=== PATIENT | female | born 2000 | race Two or more races ===

== ENCOUNTER 2019-10-16 21:10 | Observation (INO) | payer OTHER ==
[~2019-10-16] VITALS: Ht 165.1 cm; Wt 131.1 kg
[~2019-10-16 21:10] MED LIST: FERR-252 PO; PREN-385 PO
[2019-10-16] MEDS ORDERED: ACETAMINOPHEN 325 MG TAB PO PRN (22:00)
[2019-10-16] MEDS ORDERED: ACETAMINOPHEN 325 MG TAB ONE (22:02)
[2019-10-16 22:24] VITALS: BP 109/62
== END 2019-10-17 00:10 | disposition home or self-care (01) ==
LOC: MLD 21:10
PROVIDERS: ADMIT Obstetrics & Gynecology; ATTEND Obstetrics & Gynecology
DX: O36.8130 Decreased fetal movements, third trimester, not applicable or unspecified (principal); Z3A.31 31 weeks gestation of pregnancy
CPT/HCPCS: 76819; G0378; Q0092; 81000

== ENCOUNTER 2019-11-21 17:40 | Observation (INO) | payer OTHER ==
[2019-11-21 19:37] VITALS: BP 136/78
[2019-11-21 21:25] LABS: APPEARANCE,URINE CLEAR (CLEAR); BILIRUBIN,URINE NEGATIVE (NEGATIVE); BLOOD, URINE NEGATIVE (NEGATIVE); LEUKOCYTE ESTERASE ,URINE NEGATIVE (NEGATIVE); NITRITE, URINE NEGATIVE (NEGATIVE); PH,URINE 5.5 (5.0-9.0); UGLUCOSE NEGATIVE (NEGATIVE)
[2019-11-21 21:27] LABS: COLOR,URINE YELLOW (YELLOW)
[2019-11-21 21:44] LABS: CARBON DIOXIDE 22.8 mmol/L (21-32); CREATININE 0.6 mg/dL (0.6-1.3); POTASSIUM 3.8 mmol/L (3.5-5.1)
[2019-11-21 21:48] LABS: PROTHROMBIN TIME 8.8 secs (10.8-13.4)
[2019-11-21 21:49] LABS: ALBUMIN 2.6 g/dL (3.4-5.0); MAGNESIUM 1.7 mg/dL (1.8-2.4); TOTAL BILIRUBIN 0.4 mg/dL (0.0-1.0)
[2019-11-21 21:58] LABS: BASOPHILS # (AUTO) 0.1 K/uL (0.00-0.22); BASOPHILS % (AUTO) 0.5 % (0.0-2.0); EOSINOPHILS # (AUTO) 0.1 K/uL (0-0.4); EOSINOPHILS % (AUTO) 0.5 % (0.0-4.0); HEMATOCRIT 37.2 % (36-48); HEMOGLOBIN 12.2 g/dL (12.0-16.0); LYMPHOCYTES # (AUTO) 1.9 K/uL (2.5-16.5); LYMPHOCYTES % (AUTO) 16.6 % (20.5-51.1); MEAN CORPUSCULAR HEMOGLOBIN 28 pg (27-31); MEAN CORPUSCULAR HGB CONC 33 g/dL (33-37); MEAN CORPUSCULAR VOLUME 83.8 fL (80-94); MONOCYTES # (AUTO) 0.6 K/uL (0.8-1.0); MONOCYTES % (AUTO) 5.5 % (1.7-9.3); NEUTROPHILS # (AUTO) 8.8 K/uL (1.8-7.7); NEUTROPHILS % (AUTO) 76.9 % (42.2-75.2); PLATELET COUNT (AUTO) 264 K/uL (140-450); RED BLOOD CELL COUNT(AUTO) 4.44 MIL/uL (4.20-5.40); RED CELL DISTRIBUTION WIDTH 14.7 % (11.6-13.7); WHITE BLOOD COUNT (AUTO) 11.4 K/uL (4.8-10.8)
--- NOTE | 2019-11-22 08:33 | NUR ---
PATIENT HAS BEEN SCREENED AND CATEGORIZED LOW NUTRITION RISK. PATIENT WILL BE SEEN WITHIN 7 DAYS OF ADMISSION. 11/28/[address]
[2019-11-22 09:25] LABS: BASOPHILS % (AUTO) 0.4 % (0.0-2.0); EOSINOPHILS # (AUTO) 0.1 K/uL (0-0.4); EOSINOPHILS % (AUTO) 0.8 % (0.0-4.0); HEMATOCRIT 33.3 % (36-48); HEMOGLOBIN 11.2 g/dL (12.0-16.0); LYMPHOCYTES # (AUTO) 1.7 K/uL (2.5-16.5); LYMPHOCYTES % (AUTO) 16.8 % (20.5-51.1); MEAN CORPUSCULAR HEMOGLOBIN 28 pg (27-31); MEAN CORPUSCULAR HGB CONC 34 g/dL (33-37); MEAN CORPUSCULAR VOLUME 83.6 fL (80-94); MONOCYTES # (AUTO) 0.6 K/uL (0.8-1.0); MONOCYTES % (AUTO) 6.5 % (1.7-9.3); NEUTROPHILS # (AUTO) 7.6 K/uL (1.8-7.7); NEUTROPHILS % (AUTO) 75.5 % (42.2-75.2); PLATELET COUNT (AUTO) 219 K/uL (140-450); RED BLOOD CELL COUNT(AUTO) 3.98 MIL/uL (4.20-5.40); RED CELL DISTRIBUTION WIDTH 14.9 % (11.6-13.7)
== END 2019-11-22 10:45 | disposition home or self-care (01) ==
LOC: MLD 17:40 → MFCC 23:47
PROVIDERS: ADMIT Obstetrics & Gynecology; ATTEND Obstetrics & Gynecology
DX: O26.893 Other specified pregnancy related conditions, third trimester (principal); O99.413 Diseases of the circulatory system complicating pregnancy, third trimester; R10.2 Pelvic and perineal pain; R00.0 Tachycardia, unspecified; Z3A.37 37 weeks gestation of pregnancy; Z79.899 Other long term (current) drug therapy
CPT/HCPCS: 36415; 76805; 80053; 81003; 83735; 85025; 85384; 85610; 85730; 86592; 86703; 86886; 86900; 86901; 87086; G0378; Q0092

== ENCOUNTER 2019-12-01 13:01 | Observation (INO) | payer MEDICAID ==
[~2019-12-01] VITALS: Ht 165.1 cm; Wt 131.1 kg
[2019-12-01 13:39] VITALS: BP 129/70
== END 2019-12-01 14:13 | disposition home or self-care (01) ==
LOC: MLD 13:01
PROVIDERS: ADMIT Obstetrics & Gynecology; ATTEND Obstetrics & Gynecology
DX: O26.893 Other specified pregnancy related conditions, third trimester (principal); R10.9 Unspecified abdominal pain; Z3A.39 39 weeks gestation of pregnancy
CPT/HCPCS: 81000; G0378

== ENCOUNTER 2019-12-02 11:59 | Inpatient (IN) | payer MEDICAID ==
[~2019-12-02] VITALS: Ht 165.1 cm; Wt 131.1 kg
[2019-12-02] MEDS ORDERED: PROMETHAZINE 25 MG/ML VIAL IVP PRN (12:35)
[2019-12-02] MEDS ORDERED: NALBUPHINE 10 MG/ML AMP IVP PRN (12:35)
[2019-12-02] MEDS ORDERED: CARBOPROST 250 MCG/ML AMP IM PRN (12:35)
[2019-12-02] MEDS ORDERED: METHYLERGONOVINE 0.2 MG/ML AMP IM PRN (12:35)
[2019-12-02 13:45] LABS: BASOPHILS % (AUTO) 0.4 % (0.0-2.0); EOSINOPHILS % (AUTO) 0.4 % (0.0-4.0); HEMATOCRIT 35.3 % (36-48); HEMOGLOBIN 11.9 g/dL (12.0-16.0); LYMPHOCYTES # (AUTO) 1.4 K/uL (2.5-16.5); LYMPHOCYTES % (AUTO) 13.4 % (20.5-51.1); MEAN CORPUSCULAR HEMOGLOBIN 28 pg (27-31); MEAN CORPUSCULAR HGB CONC 34 g/dL (33-37); MEAN CORPUSCULAR VOLUME 83.7 fL (80-94); MONOCYTES # (AUTO) 0.8 K/uL (0.8-1.0); MONOCYTES % (AUTO) 7.3 % (1.7-9.3); NEUTROPHILS # (AUTO) 8.2 K/uL (1.8-7.7); NEUTROPHILS % (AUTO) 78.5 % (42.2-75.2); PLATELET COUNT (AUTO) 257 K/uL (140-450); RED BLOOD CELL COUNT(AUTO) 4.22 MIL/uL (4.20-5.40); RED CELL DISTRIBUTION WIDTH 15.4 % (11.6-13.7); WHITE BLOOD COUNT (AUTO) 10.4 K/uL (4.8-10.8)
[2019-12-02 13:47] LABS: APPEARANCE,URINE CLEAR (CLEAR); BILIRUBIN,URINE NEGATIVE (NEGATIVE); BLOOD, URINE NEGATIVE (NEGATIVE); COLOR,URINE YELLOW (YELLOW); LEUKOCYTE ESTERASE ,URINE NEGATIVE (NEGATIVE); NITRITE, URINE NEGATIVE (NEGATIVE); UGLUCOSE NEGATIVE (NEGATIVE)
[2019-12-02 14:06] LABS: ANION GAP 13.4 (8-16); CARBON DIOXIDE 23.4 mmol/L (21-32); CREATININE 0.5 mg/dL (0.6-1.3); POTASSIUM 3.8 mmol/L (3.5-5.1)
[2019-12-02 14:12] LABS: ALBUMIN 2.4 g/dL (3.4-5.0); TOTAL BILIRUBIN 0.3 mg/dL (0.0-1.0)
[2019-12-02] MEDS ORDERED: MISOPROSTOL 25 MCG TAB ONE (14:45)
[2019-12-02 15:12] VITALS: BP 120/73
[2019-12-02] MEDS ORDERED: MISOPROSTOL 25 MCG TAB VG SCH (18:00)
[2019-12-02] MEDS ORDERED: OXYTOCIN 20 UNITS in LACTATED RINGERS 1,000 ML IV SCH (18:10)
[2019-12-02] MEDS: LACTATED RINGERS 1,000 ML IV SCH ×2 (20:00→21:08)
[2019-12-02] MEDS ORDERED: ROPIVACAINE 0.2%/NS PREMIX 100 ML EPI ONE (20:15)
[2019-12-02] MEDS ORDERED: ROPIVACAINE 0.2%/NS PREMIX 100 ML EPI SCH (20:35)
[2019-12-03] MEDS ORDERED: OXYTOCIN 20 UNITS/LR PREMIX 1,000 ML IV ONE ×2 (00:27→23:58)
[2019-12-03] MEDS ORDERED: ROPIVACAINE 0.2%/NS PREMIX 100 ML EPI ONE ×2 (06:40→17:10)
--- NOTE | 2019-12-03 08:54 | NUR ---
PATIENT IS SCREENED AND CATEGORIZED LOW NUTRITION RISK. PATIENT WILL BE SEEN WITHIN 5-7 DAY OF ADMISSION. 12/06/2019-12/08/[address]
[2019-12-03] MEDS: LACTATED RINGERS 1,000 ML IV SCH ×2 (13:07→18:39)
[2019-12-03] MEDS ORDERED: BUPIVACAINE 0.125%/NS PREMIX 250 ML ONE (17:19)
[2019-12-03] MEDS ORDERED: BUPIVACAINE 0.125%/NS PREMIX 250 ML EPI SCH (17:35)
[2019-12-03] MEDS ORDERED: OXYTOCIN 20 UNITS in LACTATED RINGERS 1,000 ML IV SCH (18:10)
[2019-12-03] MEDS ORDERED: EPIDURAL KEYS MC ONE (21:51)
[2019-12-04] MEDS ORDERED: MEASLES, MUMPS, AND RUBELLA 1 VIAL SQVAC PRN (00:25)
[2019-12-04] MEDS ORDERED: BENZOCAINE/MENTHOL 20%-0.5% 60 GM CAN TP PRN (00:25)
[2019-12-04] MEDS ORDERED: OXYTOCIN 10 UNITS/ML VIAL IM PRN (00:25)
[2019-12-04] MEDS ORDERED: METHYLERGONOVINE 0.2 MG/ML AMP IM PRN (00:25)
[2019-12-04] MEDS ORDERED: METHYLERGONOVINE 0.2 MG TAB PO PRN (00:25)
[2019-12-04] MEDS ORDERED: IBUPROFEN 800 MG TAB PO PRN (00:25)
[2019-12-04] MEDS ORDERED: OXYTOCIN 20 UNITS/LR PREMIX 1,000 ML IV ONE (01:54)
[2019-12-04 10:27] LABS: HEMATOCRIT 29.9 % (36-48); HEMOGLOBIN 10.2 g/dL (12.0-16.0)
[2019-12-05] MEDS ORDERED: INFLUENZA VACCINE QUAD 0.5 ML SYR IMVAC PRN ×2 (07:00→10:00)
== END 2019-12-06 12:20 | disposition home or self-care (01) | DRG 560 ==
LOC: MLD 11:59 → MFCC 12-04 04:30
PROVIDERS: ADMIT Obstetrics & Gynecology; ATTEND Obstetrics & Gynecology
PROC: 10E0XZZ Delivery of Products of Conception, External Approach (ICD-10-PCS; principal; 2019-12-04)
PROC: 10907ZC Drainage of Amniotic Fluid, Therapeutic from Products of Conception, Via Natural or Artificial Opening (ICD-10-PCS; 2019-12-04)
PROC: 3E033VJ Introduction of Other Hormone into Peripheral Vein, Percutaneous Approach (ICD-10-PCS; 2019-12-04)
PROC: 3E0P7VZ Introduction of Hormone into Female Reproductive, Via Natural or Artificial Opening (ICD-10-PCS; 2019-12-04)
PROC: 0HQ9XZZ Repair Perineum Skin, External Approach (ICD-10-PCS; 2019-12-04)
PROC: 3E0R3BZ Introduction of Anesthetic Agent into Spinal Canal, Percutaneous Approach (ICD-10-PCS; 2019-12-04)
PROC: 00HU33Z Insertion of Infusion Device into Spinal Canal, Percutaneous Approach (ICD-10-PCS; 2019-12-04)
PROC: 3E0234Z Introduction of Serum, Toxoid and Vaccine into Muscle, Percutaneous Approach (ICD-10-PCS; 2019-12-04)
PROC: 3E0134Z Introduction of Serum, Toxoid and Vaccine into Subcutaneous Tissue, Percutaneous Approach (ICD-10-PCS; 2019-12-04)
PROC: 3E02340 Introduction of Influenza Vaccine into Muscle, Percutaneous Approach (ICD-10-PCS; 2019-12-05)
DX: O76 Abnormality in fetal heart rate and rhythm complicating labor and delivery (principal); D62 Acute posthemorrhagic anemia; O70.0 First degree perineal laceration during delivery; Z23 Encounter for immunization; Z3A.39 39 weeks gestation of pregnancy; Z37.0 Single live birth
CPT/HCPCS: 36415; 51702; 59200; 59409; 76815; 80053; 81003; 85018; 85025; 86592; 86886; 86900; 86901; 90707; 90715; C1758; J2590; J2795; J3490; J7120; Q0092

== ENCOUNTER 2022-03-25 11:09 | Emergency (ER) | payer MEDICAID, OTHER ==
[~2022-03-25] VITALS: Ht 165.1 cm; Wt 135.7 kg
[2022-03-25 11:13] VITALS: BP 142/79
--- NOTE | 2022-03-25 11:23 | NUR ---
EKG AT TRIAGE ROOM.
--- NOTE | 2022-03-25 12:09 | NUR ---
C/O CONSTANT 8/10 LEFT CHEST PAIN X ATARTED AT 8:30 AM TODAY. PT STATED WOKE UP EARLY THIS MORNING WITH A LITTLE BIT OF CHEST PAIN. PAIN WAS WORSE WHEN WOKEUP LATER IN THE MORNING AT A 8/10 MORE ON THE LEFT SIDE OF THE CHEST. NO COMPLIANT OF PAIN ANYWHERE ELSE. PAIN GETS SHARPER WHEN BREATHING. NO TRAUMA TO THE AREA. NO PROBLEMS BREATHING. PT RESTING IN BED. NO PMH NKA
[2022-03-25] MEDS ORDERED: NAPR-54 PO (14:08)
[2022-03-25 14:16] VITALS: BP 126/75
== END 2022-03-25 14:17 | disposition home or self-care (01) ==
LOC: MED 11:09
DX: R07.89 Other chest pain (principal); Z79.899 Other long term (current) drug therapy; Z79.1 Long term (current) use of non-steroidal anti-inflammatories (NSAID)
CPT/HCPCS: 81002; 81025; 93005; 99283

== ENCOUNTER 2023-03-20 14:11 | Emergency (ER) | payer OTHER ==
[~2023-03-20] VITALS: Ht 165.1 cm; Wt 130.6 kg
[~2023-03-20 14:11] MED LIST changes: +NAPR-54 PO
[2023-03-20 14:17] VITALS: BP 136/70
--- NOTE | 2023-03-20 14:22 | NUR ---
PT AMBULATORY TO [facility]
[2023-03-20] MEDS ORDERED: KETOROLAC 30 MG/ML VIAL IM ONE (15:40)
[2023-03-20 16:13] LABS: APPEARANCE,URINE HAZY (CLEAR); BILIRUBIN,URINE NEGATIVE (NEGATIVE); BLOOD, URINE NEGATIVE (NEGATIVE); COLOR,URINE YELLOW (YELLOW); LEUKOCYTE ESTERASE ,URINE 1+ (NEGATIVE); NITRITE, URINE NEGATIVE (NEGATIVE); UGLUCOSE NEGATIVE (NEGATIVE)
[2023-03-20 16:31] LABS: BASOPHILS # (AUTO) 0.1 K/uL (0.00-0.22); BASOPHILS % (AUTO) 0.6 % (0.0-2.0); EOSINOPHILS # (AUTO) 0.3 K/uL (0-0.4); EOSINOPHILS % (AUTO) 2.4 % (0.0-4.0); HEMATOCRIT 35.7 % (36-48); HEMOGLOBIN 11.5 g/dL (12.0-16.0); LYMPHOCYTES % (AUTO) 17.9 % (20.5-51.1); MEAN CORPUSCULAR HEMOGLOBIN 24 pg (27-31); MEAN CORPUSCULAR HGB CONC 32 g/dL (33-37); MONOCYTES # (AUTO) 0.7 K/uL (0.8-1.0); MONOCYTES % (AUTO) 6.3 % (1.7-9.3); NEUTROPHILS % (AUTO) 72.8 % (42.2-75.2); PLATELET COUNT (AUTO) 333 K/uL (140-450); RED BLOOD CELL COUNT(AUTO) 4.75 MIL/uL (4.20-5.40); RED CELL DISTRIBUTION WIDTH 14.8 % (11.6-13.7)
[2023-03-20 16:39] LABS: RBC,URINE NONE SEEN /HPF (0-5)
[2023-03-20 16:54] LABS: ALBUMIN 3.6 g/dL (3.4-5.0); ANION GAP 12.5 (8-16); CARBON DIOXIDE 26.4 mmol/L (21-32); CREATININE 0.8 mg/dL (0.6-1.3); POTASSIUM 3.9 mmol/L (3.5-5.1); TOTAL BILIRUBIN 0.4 mg/dL (0.0-1.0)
[2023-03-20] MEDS ORDERED: CYCL-711 PO (17:53)
[2023-03-20] MEDS ORDERED: IBUP-2213 PO (17:53)
[2023-03-20] MEDS ORDERED: LID5T TP (17:53)
[2023-03-20] MEDS ORDERED: CEPH-588 PO (17:53)
[2023-03-20 18:00] VITALS: BP 138/76
== END 2023-03-20 18:00 | disposition home or self-care (01) ==
LOC: MED 14:11
DX: N39.0 Urinary tract infection, site not specified (principal); Z79.899 Other long term (current) drug therapy
CPT/HCPCS: 36415; 74176; 80053; 81001; 81025; 85025; 87086; 96372; 99285; J1885

== ENCOUNTER 2023-05-31 12:40 | Emergency (ER) | payer OTHER ==
[~2023-05-31] VITALS: Ht 165.1 cm; Wt 136.6 kg
[~2023-05-31 12:40] MED LIST changes: +CEPH-588 PO; +CYCL-711 PO; +IBUP-2213 PO; +LID5T TP
[2023-05-31 13:19] VITALS: BP 139/94; PULSE 77; RESP 19; TEMP 97.5; O2SAT 97
--- NOTE | 2023-05-31 13:30 | NUR ---
PT AMBULATED TO RESTROOM FOR URINE SAMPLE
--- NOTE | 2023-05-31 13:36 | NUR ---
PT AMBULATED TO [facility]
[2023-05-31] MEDS ORDERED: IBUPROFEN 600 MG TAB PO ONE (13:45)
[2023-05-31] MEDS ORDERED: ACET-8905 PO (14:31)
[2023-05-31] MEDS ORDERED: IBUP-2213 PO (14:31)
[2023-05-31 15:14] VITALS: BP 141/91; PULSE 79; RESP 20; TEMP 96.7; O2SAT 98
--- NOTE | 2023-05-31 15:14 | NUR ---
Patient discharged with v/s stable. Written and verbal after care instructions given and explained. Patient alert, oriented and verbalized understanding of instructions. Ambulatory with steady gait. All questions addressed prior to discharge. ID band removed. Patient advised to follow up with PMD. Rx of HYDROCODON/ACETAMINOPHEN,IBUPROFEN given. Patient educated on indication of medication including possible reaction and side effects. Opportunity to ask questions provided and answered.
== END 2023-05-31 15:14 | disposition home or self-care (01) ==
LOC: MED 12:40
DX: S92.412A Displaced fracture of proximal phalanx of left great toe, initial encounter for closed fracture (principal); W22.8XXA Striking against or struck by other objects, initial encounter; Y93.89 Activity, other specified; Y92.89 Other specified places as the place of occurrence of the external cause; Y99.8 Other external cause status
CPT/HCPCS: 29515; 73660; 81025; 99283

== ENCOUNTER 2024-03-16 12:11 | Emergency (ER) | payer OTHER ==
[~2024-03-16] VITALS: Ht 165.1 cm; Wt 144.9 kg
[~2024-03-16 12:11] MED LIST changes: +ACET-8905 PO; +NAPR-337 PO; -NAPR-54 PO
[2024-03-16 12:55] VITALS: BP 136/76; PULSE 115; RESP 20; TEMP 97.7; O2SAT 98
[2024-03-16] MEDS: ONDANSETRON 4 MG ODT PO ONE (13:34)
[2024-03-16 14:17] LABS: FLU A ANTIGEN negative (NEGATIVE); FLU B ANTIGEN negative (NEGATIVE)
[2024-03-16 14:49] LABS: BASOPHILS % (AUTO) 0.3 % (0.0-2.0); EOSINOPHILS % (AUTO) 0.1 % (0.0-4.0); HEMATOCRIT 34.5 % (36-48); HEMOGLOBIN 11.4 g/dL (12.0-16.0); LYMPHOCYTES # (AUTO) 0.7 K/uL (2.5-16.5); LYMPHOCYTES % (AUTO) 7.9 % (20.5-51.1); MEAN CORPUSCULAR HEMOGLOBIN 24 pg (27-31); MEAN CORPUSCULAR HGB CONC 33 g/dL (33-37); MEAN CORPUSCULAR VOLUME 73.2 fL (80-94); MONOCYTES # (AUTO) 0.6 K/uL (0.8-1.0); MONOCYTES % (AUTO) 6.6 % (1.7-9.3); NEUTROPHILS # (AUTO) 7.9 K/uL (1.8-7.7); NEUTROPHILS % (AUTO) 85.1 % (42.2-75.2); PLATELET COUNT (AUTO) 287 K/uL (140-450); RED BLOOD CELL COUNT(AUTO) 4.71 MIL/uL (4.20-5.40); RED CELL DISTRIBUTION WIDTH 15.7 % (11.6-13.7); WHITE BLOOD COUNT (AUTO) 9.2 K/uL (4.8-10.8)
[2024-03-16 15:01] LABS: ANION GAP 12.8 (8-16); CALCIUM 8.2 mg/dL (8.5-10.1); CARBON DIOXIDE 25.4 mmol/L (21-32); CREATININE 0.8 mg/dL (0.6-1.3); POTASSIUM 3.2 mmol/L (3.5-5.1)
[2024-03-16 15:05] LABS: ALBUMIN 3.1 g/dL (3.4-5.0); BILIRUBIN,DIRECT 0.1 mg/dL (0.0-0.3); TOTAL BILIRUBIN 0.6 mg/dL (0.0-1.0); TOTAL PROTEIN, SERUM 6.9 g/dL (6.4-8.2)
[2024-03-16] MEDS ORDERED: KETOROLAC 30 MG/ML VIAL ONE (15:09)
[2024-03-16] MEDS: KETOROLAC 30 MG/ML VIAL IVP ONE (15:13)
[2024-03-16] MEDS: NACL 0.9% 1,000 ML IV ONE (15:18)
[2024-03-16 15:30] LABS: APPEARANCE,URINE CLEAR (CLEAR); BILIRUBIN,URINE NEGATIVE (NEGATIVE); BLOOD, URINE 1+ (NEGATIVE); COLOR,URINE YELLOW (YELLOW); LEUKOCYTE ESTERASE ,URINE NEGATIVE (NEGATIVE); NITRITE, URINE NEGATIVE (NEGATIVE); PH,URINE 6.5 (5.0-9.0); PROTEIN,URINE NEGATIVE (NEGATIVE); UGLUCOSE NEGATIVE (NEGATIVE); UROBILINOGEN,URINE 0.2 EU/dL (0.2 - 1)
[2024-03-16] MEDS ORDERED: BEN10 PO (15:50)
[2024-03-16] MEDS ORDERED: ONDA-188 SL (15:50)
[2024-03-16] MEDS: DICYCLOMINE 10 MG CAP PO ONE (16:32)
[2024-03-16] MEDS: ACETAMINOPHEN EXTRA STRENGTH 500 MG TAB PO ONE (16:33)
[2024-03-16 16:47] VITALS: BP 120/53; PULSE 98; RESP 19; TEMP 97.7; O2SAT 99
== END 2024-03-16 16:47 | disposition home or self-care (01) ==
LOC: MED 12:11
DX: A08.4 Viral intestinal infection, unspecified (principal); N83.202 Unspecified ovarian cyst, left side; D64.9 Anemia, unspecified; Z20.822 Contact with and (suspected) exposure to COVID-19; Z98.890 Other specified postprocedural states; Z79.899 Other long term (current) drug therapy
CPT/HCPCS: 36415; 74176; 80048; 80076; 81003; 81025; 85025; 87426; 87804; 96361; 96374; 99285; J1885; J7030; Q0162

== ENCOUNTER 2024-05-31 02:24 | Emergency (ER) | payer OTHER ==
[~2024-05-31] VITALS: Ht 165.1 cm; Wt 138.8 kg
[~2024-05-31 02:24] MED LIST changes: +BEN10 PO; +ONDA-188 SL
[2024-05-31 02:28] VITALS: BP 120/75; PULSE 79; RESP 18; TEMP 98.2; O2SAT 99
[2024-05-31] MEDS ORDERED: IBUP-2218 PO (03:39)
[2024-05-31] MEDS ORDERED: BENZ-300 PO (03:39)
[2024-05-31 03:44] VITALS: BP 120/75; PULSE 79; RESP 18; TEMP 98.2; O2SAT 99
== END 2024-05-31 03:44 | disposition home or self-care (01) ==
LOC: MED 02:24
DX: J02.8 Acute pharyngitis due to other specified organisms (principal); B97.89 Other viral agents as the cause of diseases classified elsewhere; Z79.1 Long term (current) use of non-steroidal anti-inflammatories (NSAID); Z79.2 Long term (current) use of antibiotics; Z79.899 Other long term (current) drug therapy
CPT/HCPCS: 87081; 99283

== ENCOUNTER 2024-07-14 13:03 | Emergency (ER) | payer OTHER ==
[~2024-07-14] VITALS: Ht 157.5 cm; Wt 117.9 kg
[~2024-07-14 13:03] MED LIST changes: +BENZ-300 PO; +IBUP-2218 PO
[2024-07-14 13:12] VITALS: BP 132/77; PULSE 91; RESP 16; TEMP 98.1; O2SAT 98
[2024-07-14] MEDS ORDERED: IBUP-2218 PO (13:58)
[2024-07-14] MEDS ORDERED: METH-1681 PO (13:58)
[2024-07-14] MEDS: IBUPROFEN 800 MG TAB PO ONE (14:02)
== END 2024-07-14 14:20 | disposition home or self-care (01) ==
LOC: MED 13:03
DX: S76.911A Strain of unspecified muscles, fascia and tendons at thigh level, right thigh, initial encounter (principal); Z79.899 Other long term (current) drug therapy; X58.XXXA Exposure to other specified factors, initial encounter; Y92.89 Other specified places as the place of occurrence of the external cause; Y93.89 Activity, other specified; Y99.8 Other external cause status
CPT/HCPCS: 81025; 99283

== ENCOUNTER 2024-08-06 07:38 | Emergency (ER) | payer OTHER ==
[~2024-08-06] VITALS: Ht 165.1 cm; Wt 128.4 kg
[~2024-08-06 07:38] MED LIST changes: +METH-1681 PO
[2024-08-06 07:44] VITALS: BP 126/78; PULSE 101; RESP 16; TEMP 97; O2SAT 14
[2024-08-06] MEDS: ONDANSETRON 4 MG ODT PO ONE (08:16)
[2024-08-06] MEDS: DEXAMETHASONE 10 MG/ML VIAL IM ONE (08:19)
[2024-08-06 09:01] LABS: APPEARANCE,URINE CLEAR (CLEAR); BILIRUBIN,URINE NEGATIVE (NEGATIVE); BLOOD, URINE NEGATIVE (NEGATIVE); COLOR,URINE YELLOW (YELLOW); LEUKOCYTE ESTERASE ,URINE 1+ (NEGATIVE); NITRITE, URINE NEGATIVE (NEGATIVE); PROTEIN,URINE NEGATIVE (NEGATIVE); UGLUCOSE NEGATIVE (NEGATIVE); UROBILINOGEN,URINE 0.2 EU/dL (0.2 - 1)
[2024-08-06] MEDS ORDERED: MELO-176 PO (09:01)
[2024-08-06] MEDS ORDERED: ONDA-188 SL (09:01)
[2024-08-06] MEDS ORDERED: AMOX500C25 PO (09:01)
[2024-08-06 09:07] LABS: BACTERIA,URINE 10-30 (MOD) /HPF (None Seen); MUCUS,URINE 1+ /LPF (None Seen); RBC,URINE 0-5 /HPF (0-5); SQUAMOUS EPITHELIAL CELL,UR 4-10 (MOD) /LPF (0-3 (FEW))
[2024-08-06 09:31] VITALS: BP 122/66; PULSE 94; RESP 18; O2SAT 98
== END 2024-08-06 09:31 | disposition home or self-care (01) ==
LOC: MED 07:38
DX: J02.0 Streptococcal pharyngitis (principal); R11.2 Nausea with vomiting, unspecified; Z79.899 Other long term (current) drug therapy
CPT/HCPCS: 81001; 81025; 87081; 87086; 96372; 99283; J1100; Q0162